=== PATIENT | female | born 1985 ===

== ENCOUNTER 2018-02-08 17:38 | Emergency (ER) | payer BC ==
[2018-02-08 18:06] VITALS: BP 106/70
--- NOTE | 2018-02-08 18:22 | UC ---
UC General HPI - HPI Summary HPI Summary: Patient presents with three-day history of sore throat. She admits to runny nose and possibly some chills. No cough or breath vomiting or diarrhea. Patient is 32 weeks . She self treating with occasional Tylenol. - History of Current Complaint Chief Complaint: UCGeneralIllness Stated Complaint: SORE THROAT Time Seen by Provider: 02/08/18 18:13 Hx Obtained From: Patient Onset/Duration: Gradual Onset Timing: Constant Pain Intensity: 3 Associated Signs & Symptoms: Positive: Fever, Headache - Allergy/Home Medications Allergies/Adverse Reactions: Allergies Allergy/AdvReac Type Severity Reaction Status Date / Time No Known Allergies Allergy Verified 02/08/18 18:06 Home Medications: Home Medications Cholecalciferol TAB* [Vitamin D TAB*] 4,000 unit PO DAILY 02/08/18 [History Confirmed 02/08/18] Levothyroxine TAB* [Synthroid TAB*] 37.5 mcg PO 0800 02/08/18 [History Confirmed 02/08/18] Vit Calc,Iron,Folic [ Vitamins] 1 each PO DAILY 02/08/18 [ History Confirmed 02/08/18] PMH/Surg Hx/FS Hx/Imm Hx - Additional Past Medical History Additional PMH: 32 weeks - Surgical History Surgical History: Yes Surgery Procedure, Year, and Place: eye - Social History Occupation: Employed Full-time Lives: With Family Alcohol Use: None Substance Use Type: None Smoking Status (MU): Never Smoked Tobacco - Immunization History Vaccination Up to Date: Yes Review of Systems Constitutional: Fever - 99 Skin: Negative Eyes: Negative ENT: Sore Throat, Nasal Discharge Respiratory: Negative Cardiovascular: Negative Gastrointestinal: Negative Genitourinary: Negative Motor: Negative Neurovascular: Negative Musculoskeletal: Negative Neurological: Headache Psychological: Negative Is Patient Immunocompromised?: No All Other Systems Reviewed And Are Negative: Yes Physical Exam Triage Information Reviewed: Yes Appearance: Well-Appearing Vital Signs: Initial Vital Signs Temp 99 F 02/08/18 18:00 Pulse 113 02/08/18 18:00 Resp 17 02/08/18 18:00 BP 106/70 02/08/18 18:00 Pulse Ox 100 02/08/18 18:00 Eyes: Positive: Conjunctiva Clear ENT: Positive: Pharyngeal erythema, Other - TM's occluded by cerumne, pt declined flush.. Negative: Nasal drainage Neck: Positive: Supple, Tenderness @ - peritonsilar nodes with mild tenderness. Respiratory: Positive: Lungs clear, Normal breath sounds Cardiovascular: Positive: RRR, No Murmur Abdomen Description: Positive: Nontender, No Organomegaly, Soft, Other: - gravid uterus Bowel Sounds: Positive: Present Musculoskeletal: Positive: ROM Intact Neurological: Positive: Alert Psychological: Positive: Age Appropriate Behavior Skin Exam: Normal Diagnostics - Laboratory Diagnostic Studies Completed/Ordered: rapid strep=neg Course/Dx - Course Course Of Treatment: Rapid strep is negative. Patient is nontoxic. No sign of abscess. Treatment is supportive. - Differential Dx - Multi-Symptom Provider Diagnoses: sore throat Discharge - Sign-Out/Discharge Documenting (check all that apply): Discharge/Admit/Transfer - Discharge Plan Condition: Stable Disposition: HOME Patient Education Materials: Pharyngitis (ED) Referrals: Elena JOHNSON,Michelle Tan [Primary Care Provider] - 5 Days - Billing Disposition and Condition Condition: STABLE Disposition: Home
== END 2018-02-08 18:35 | disposition home or self-care (01) ==
LOC: UCCORT 17:38
DX: O26.893 Other specified pregnancy related conditions, third trimester (principal); Z3A.32 32 weeks gestation of pregnancy
CPT/HCPCS: 87651; 99201; G0463